=== PATIENT | male | born 1995 | race Caucasian/White ===

== ENCOUNTER 2017-03-12 23:38 | Emergency (ER) | payer MEDICAID ==
[~2017-03-12] VITALS: Ht 165.1 cm; Wt 81.6 kg
[2017-03-12 23:49] VITALS: BP 149/71
--- NOTE | 2017-03-13 00:58 | NUR ---
PATIENT AMBULATED TO ER OF 1.
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
--- NOTE | 2017-03-13 02:00 | NUR ---
CLEANSED WOUND WITH NSS, PAT DRY, APPLIED BACTIRICIN OINTMENT COVER WITH NON-ADHESIVE DRESSING. NO ACTIVE BLEEDING AT THIS TIME.
--- NOTE | 2017-03-13 02:01 | NUR ---
PATIENT BEING EVALUATED BY DR. MALDONADO.
--- NOTE | 2017-03-13 02:10 | NUR ---
Patient discharged with v/s stable. Written and verbal after care instructions given and explained. Patient verbalized understanding. Ambulatory with steady gait. All questions addressed prior to discharge. Advised to follow up with PMD.
[2017-03-13] MEDS ORDERED: BACITRACIN OINT 500 UNITS/GM PKT TP ONE (02:11)
[2017-03-13 02:18] VITALS: BP 135/80
== END 2017-03-13 02:10 | disposition home or self-care (01) ==
LOC: MED 23:38
DX: S61.012A Laceration without foreign body of left thumb without damage to nail, initial encounter (principal); J45.909 Unspecified asthma, uncomplicated; W45.8XXA Other foreign body or object entering through skin, initial encounter; Y93.89 Activity, other specified; Y92.89 Other specified places as the place of occurrence of the external cause; Y99.8 Other external cause status

== ENCOUNTER 2018-10-01 19:15 | Emergency (ER) | payer MEDICAID ==
[~2018-10-01] VITALS: Ht 167.6 cm; Wt 77.1 kg
[2018-10-01 19:16] VITALS: BP 147/74
--- NOTE | 2018-10-01 19:16 | NUR ---
TO BED # 4 AMBULATORY, REPORT GIVEN TO RANDALL BERGER
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
--- NOTE | 2018-10-01 19:43 | NUR ---
Dr. Sorto evaluating patient at bedside.
[2018-10-01] MEDS ORDERED: LORazepam 2 MG/ML VIAL IM ONE (19:50)
[2018-10-01] MEDS ORDERED: LORazepam 1 MG TAB PO ONE (19:50)
[2018-10-01 20:23] LABS: BARBITURATE, URINE NEG. ng/ml (NEG <=200); BENZODIAZEPINE, URINE NEG. ng/mL (NEG <=200); CANNABINOID, URINE POS. ng/mL (NEG <=50); COCAINE, URINE POS. ng/mL (NEG <=300); OPIATE, URINE NEG. ng/mL (NEG <=2000); PHENCYCLIDINE SCREEN,URINE NEG. ng/mL (NEG <=25)
--- NOTE | 2018-10-01 20:32 | NUR ---
Patient discharged with v/s stable. Written and verbal after care instructions given and explained. Patient alert, oriented and verbalized understanding of instructions. Ambulatory with steady gait. All questions addressed prior to discharge. ID band removed. Patient advised to follow up with PMD. Rx of ATIVAN PO given. Patient educated on indication of medication including possible reaction and side effects. Opportunity to ask questions provided and answered.
[2018-10-01 20:46] VITALS: BP 146/78
== END 2018-10-01 20:32 | disposition home or self-care (01) ==
LOC: MED 19:15
DX: T40.5X1A Poisoning by cocaine, accidental (unintentional), initial encounter (principal); T40.7X1A Poisoning by cannabis (derivatives), accidental (unintentional), initial encounter; F41.9 Anxiety disorder, unspecified; R06.02 Shortness of breath; R55 Syncope and collapse; F32.9 Major depressive disorder, single episode, unspecified; Y92.89 Other specified places as the place of occurrence of the external cause
CPT/HCPCS: 80305; 96372; 99283; J2060

== ENCOUNTER 2018-10-26 19:31 | Emergency (ER) | payer MEDICAID ==
[~2018-10-26] VITALS: Ht 165.1 cm; Wt 83.0 kg
[2018-10-26 19:34] VITALS: BP 153/82
--- NOTE | 2018-10-26 19:34 | NUR ---
PT AMBULATED TO LOBBY IN STABLE CONDITION. VSS
--- NOTE | 2018-10-26 20:25 | NUR ---
PT AMBULATED TO ER BED 04
--- NOTE | 2018-10-26 20:34 | NUR ---
PT PRESENTS TO ED WITH C/O L SIDED RIB PAIN AND CONSTIPATION. ABD IS FIRM, BOWEL SOUNDS ACTIVE TO ALL QUADRANTS. PT REPROTS PAIN UPON PALAPTION TO LUQ. PT REPORTS LAST BM 10/24/18. PT PLACED INTO BED, PENDING MD REYNA. PMH--ANXIETY, DEPRESSION, ASTHMA RX-ATIVAN, ALBUTEROL
[2018-10-26] MEDS ORDERED: KETOROLAC 30 MG/ML VIAL IM ONE (20:50)
[2018-10-26 21:35] VITALS: BP 147/79
--- NOTE | 2018-10-26 21:47 | NUR ---
Patient discharged with v/s stable. Written and verbal after care instructions given and explained. Patient alert, oriented and verbalized understanding of instructions. Ambulatory with steady gait. All questions addressed prior to discharge. ID band removed. Patient advised to follow up with PMD. Rx of NAPROSYN, TYLEONL given. Patient educated on indication of medication including possible reaction and side effects. Opportunity to ask questions provided and answered.
== END 2018-10-26 21:35 | disposition home or self-care (01) ==
LOC: MED 19:31
DX: R07.89 Other chest pain (principal); R09.1 Pleurisy; J45.909 Unspecified asthma, uncomplicated
CPT/HCPCS: 71045; 74018; 96372; 99283; J1885

== ENCOUNTER 2021-05-11 18:50 | Emergency (ER) | payer MEDICAID ==
[~2021-05-11] VITALS: Ht 165.1 cm; Wt 95.3 kg
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
[2021-05-11 20:04] VITALS: BP 155/90
--- NOTE | 2021-05-11 20:06 | NUR ---
TO LOBBY A/W BED AMBULATORY
--- NOTE | 2021-05-11 21:33 | NUR ---
ABULATED TO ER BED 9
[2021-05-11] MEDS ORDERED: HYDROcodone/APAP 5/325 MG 1 TAB TAB PO ONE (21:50)
[2021-05-11] MEDS ORDERED: ONDANSETRON 4 MG ODT PO ONE (21:50)
[2021-05-11] MEDS ORDERED: ACET-8386 PO (21:53)
--- NOTE | 2021-05-11 22:00 | NUR ---
PT TAKEN TO XRAY VIA WHEELCHAIR
[2021-05-11 22:34] VITALS: BP 130/85
== END 2021-05-11 22:35 | disposition home or self-care (01) ==
LOC: MED 18:50
DX: R07.89 Other chest pain (principal); J45.909 Unspecified asthma, uncomplicated; Z79.899 Other long term (current) drug therapy; V49.49XA Driver injured in collision with other motor vehicles in traffic accident, initial encounter; Y93.89 Activity, other specified; Y92.89 Other specified places as the place of occurrence of the external cause; Y99.8 Other external cause status
CPT/HCPCS: 71101; 99283; Q0162

== ENCOUNTER 2024-01-15 22:50 | Emergency (ER) | payer MEDICAID ==
[~2024-01-15] VITALS: Ht 177.8 cm; Wt 111.1 kg
[~2024-01-15 22:50] MED LIST: ACET-8905 PO
[2024-01-15 22:57] VITALS: BP 145/89; PULSE 105; RESP 28; TEMP 97.3; O2SAT 99
[2024-01-15] MEDS: NACL 0.9% 1,000 ML IV ONE (23:13)
[2024-01-16 02:45] VITALS: O2SAT 97
[2024-01-16 09:16] VITALS: BP 117/80; PULSE 99; RESP 18; TEMP 98.1; O2SAT 98
== END 2024-01-16 09:40 | disposition home or self-care (01) ==
LOC: MED 22:50
DX: F10.129 Alcohol abuse with intoxication, unspecified (principal); R41.82 Altered mental status, unspecified; J45.909 Unspecified asthma, uncomplicated; Z79.899 Other long term (current) drug therapy; Y90.9 Presence of alcohol in blood, level not specified
CPT/HCPCS: 36415; 96360; 99283; G0482; J7030